=== PATIENT | male | born 1995 | race Caucasian/White ===

== ENCOUNTER → 2016-08-29 | Outpatient (CLI) | payer OTHER ==
--- NOTE | 2016-08-29 10:03 | DIAGNOSTIC IMAGING REPORT ---
ABDOMINAL ULTRASOUND, RIGHT UPPER QUADRANT HISTORY: Right upper quadrant abdominal pain.. COMPARISON: Abdomen and pelvis CT 04/03/2016. FINDINGS: Pancreas: The pancreatic head and tail are obscured by overlying bowel gas. The remaining portions of the pancreas are within normal limits. Liver: Unremarkable. Gallbladder: No gallbladder wall thickening. No gallstones. CBD: 6 mm. Right kidney: No hydronephrosis. IMPRESSION: No significant abnormality identified within the right upper quadrant. Electronically signed by: Chuck Mejía M.D. 08/29/2016 10:02 AM Dictated Date/Time: 08/29/2016 10:01 AM
== END | disposition home or self-care (01) ==
LOC: C.ULTRBC 09:33
PROVIDERS: ATTEND Internal Medicine
DX: R10.31 Right lower quadrant pain (principal)